=== PATIENT | male | born 1990 | race Two or more races ===

== ENCOUNTER 2025-08-28 12:30 | Day surgery (SDC) | payer MEDICAID, SELFPAY ==
[2025-08-28] VITALS (10 sets, daily range): BP systolic 113–129; BP diastolic 68–81; PULSE 60–74; RESP 12–20; TEMP 36.2–36.7; O2SAT 94–99; BMI 33.0
[2025-08-28] MEDS: RINGERS LACTATED 1000 ML 1,000 ML 100 ML IV (14:26)
[2025-08-28] MEDS: fentaNYL CIT INJ 50 mCg/ML AMP 2ML (ASD USE ONLY) IVP (14:29)
[2025-08-28] MEDS: MIDAZOLAM INJ 1 MG/ML VIAL 2 ML (ASD USE ONLY) 2 MG IVP (14:29)
== END 2025-08-28 15:24 | disposition home or self-care (01) ==
PROVIDERS: PCP Family Medicine; Referring Provider Surgery; Visit Provider Surgery
PROC: 0DBE8ZX Excision of Large Intestine, Via Natural or Artificial Opening Endoscopic, Diagnostic (ICD-10-PCS; CPT 45380; principal; 2025-08-28 14:30)
DX: Z12.11 Encounter for screening for malignant neoplasm of colon (principal); D12.5 Benign neoplasm of sigmoid colon
CPT/HCPCS: 45385; A4649; J2250; J3010; J7120

== ENCOUNTER 2025-08-30 23:35 | Emergency (ER) | payer MEDICAID, SELFPAY ==
[2025-08-30 23:36] VITALS: BMI 32.8
--- NOTE | 2025-08-30 23:44 | PD.EDABDPN ---
ED Abdominal Pain RME/HPI General Chief Complaint: Abdominal Pain Stated complaint: ABD PAIN, HAYDEN, FEVER, CHILLS,SOB Time seen by provider: 08/31/25 00:01 Arrival date/time: 08/30/25 23:35 RME / HPI RME / HPI narrative: See [facility] for Dr. Aviles's HPI documentation. Related Data Previous Rx's ?Medication ?Instructions ?Recorded amoxicillin 875 mg-potassium 1 tab PO BID #20 tabs 08/31/25 clavulanate 125 mg tablet prednisone 20 mg tablet 20 mg PO BID 3 days #6 tabs 08/31/25 Allergies Allergy/AdvReac Type Severity Reaction Status Date / Time No Known Allergies Allergy Verified 08/30/25 23:36 Review of Systems Review of Systems Systems Reviewed: All systems reviewed, normal except as documented Past Medical History Past Medical History NEUROLOGIC: Negative Neurological Disorders or Seizures CARDIAC: Negative Cardiac Disorders or Congestive Heart Failure RESPIRATORY: Negative Chronic Obstructive Pulmonary Disease (COPD) GASTROINTESTINAL: Positive Gastrointestinal Disorders; Negative Hepatitis GENITOURINARY: Negative Genitourinary Disorders or Renal Disease MUSCULOSKELETAL: Negative Musculoskeletal Disorders ENDOCRINE: Negative Endocrine Disorders, Diabetes Mellitus Type 1 or Diabetes Mellitus Type 2 HEMATOLOGIC: Negative Blood Disorders OTHER HISTORY: Negative Autoimmune Disease, Falls, Blood Transfusions, Blood Transfusion Reaction, Anesthesia Reactions, Chicken Pox, Measles, Mumps, Clostridium Difficile or Cancer Social History SMOKING STATUS: Never smoker ED Exam Narrative Physical exam: See [facility] for Dr. Aviles's physical exam documentation. Course Course Course Narrative: CXR is ordered for determining the etiology of fever. Quality Measures none Orders Category Date Time Status Bedside COVID-19 Antigen Test NOW Care 08/30/25 23:52 Completed Bedside Influenza A&B Antigen Test NOW Care 08/30/25 23:[address] Screening NOW Care 08/30/25 23:54 Completed Saline [Insert IV] NOW Care 08/30/25 23:[address] chest abdomen pelvis w Stat Exams 08/30/25 23:54 Taken XR chest 1V portable Stat Exams 08/30/25 23:54 Taken Bilirubin,Direct Stat Lab 08/30/25 00:20 Completed Blood Culture (Lab) Stat Lab 08/30/25 00:20 Received CBC Stat Lab 08/30/25 00:20 Completed CMP [Comprehensive Metabolic Panel] Stat Lab 08/30/25 00:20 Completed CRP [C-Reactive Protein] Stat Lab 08/30/25 00:20 Completed ESR [Sed Rate (ESR)] Stat Lab 08/30/25 00:20 Completed Lactate (Lactic Acid) Stat Lab 08/30/25 00:20 Completed Magnesium Stat Lab 08/30/25 00:20 Completed Procalcitonin Stat Lab 08/30/25 00:20 Completed Strep A Rapid Stat Lab 08/31/25 00:15 Completed Acetaminophen Tab [Tylenol ES Tab] Med 08/30/25 23:53 Discontinued 1,000 mg PO X1 ONE Amoxicillin/Pot Clav 875 [Augmentin 875] Med 08/31/25 03:08 Discontinued 1 tab PO X1 ONE Ketorolac Inj [Toradol Inj] Med 08/30/25 23:53 Discontinued 30 mg IVP X1 ONE MethylPREDNISolone.* [SoluMEDROL Inj] Med 08/30/25 23:53 Discontinued 125 mg IVP X1 ONE Sodium Chloride 0.9% 1000 ml [Ns] 1,000 ml Med 08/30/25 23:53 Discontinued IV 999 mls/hr Sodium Chloride 0.9% 1000 ml [Ns] 1,000 ml Med 08/31/25 02:32 Discontinued IV 999 mls/hr Vital Signs Vital signs: Vital Signs Temperature 101.0 F H 08/30/25 23:46 Pulse Rate 96 08/30/25 23:46 Respiratory Rate 18 08/30/25 23:46 Blood Pressure 152/92 H 08/30/25 23:46 Pulse Oximetry (%) 96 08/30/25 23:46 Oxygen Delivery Method Room Air 08/30/25 23:46 Abdominal Pain MDM MDM Narrative MDM Narrative:: This section includes all my notes and documentations, including HPI, PE, and ED course. Tanner Aviles MD HPI: 34yo male here with lower abdominal pain since colonoscopy several days ago. He also reports subjective fever, chills, aches, and sore throat. No other complaints. ROS: All negative except as documented in HPI. Physical Exam: General: Alert and oriented. No acute distress when remaining still. Eyes: Conjunctivae and lids clear. ENT: No nasal congestion. Pharynx erythematous and edematous. TM normal bilaterally. Neck: Supple. Heart: RRR. Lungs: No respiratory distress. Good air movement. No rhonchi, wheezing, rales. Abdomen: Soft with mild lower abdominal tenderness. Normal bowel sounds. No distension. No rebound or guarding. Back: No CVA tenderness. Skin: Clammy. Neuro: Alert and oriented X 3. I reviewed all diagnostic test results. My interpretation of the chest x-ray is NAD. My review of the CT chest abdomen pelvis report is mild inflammation adjacent to sigmoid colon. Blood tests are unremarkable. COVID/Influenza/Strep negative. At this point, diagnoses include: Acute tonsillitis Normal abdominal pain after colonoscopy Treatment here included: Solumedrol 125 mg IV Toradol 30 mg IV IV fluid Tylenol 1000 mg orally Augmentin 875 mg orally Significant proven noted. Recommend outpatient management. Based on my best medical judgment, made decision no further evaluation or treatment indicated at this time. Patient understands and agrees to the discharge instructions customized and printed, see below. Discharge instructions from Dr. Aviles: --After evaluation, you have tonsillitis. See attached handout. Your abdominal pain is normal after colonoscopy. -- Augmentin to kill the germs causing the tonsillitis. Complete the entire 10-day course. -- Prednisone to decrease the swelling in the throat. -- Tylenol 1000 mg alternating with ibuprofen 800 mg every 4 hours today and tomorrow. Then as needed for fever or pain. -- Increase oral fluid. Our body needs extra when we are sick. Maintain clear urine. If dark or yellow, increase oral fluid. -- See a private doctor next week if not better. Ask for a referral to see ENT specialist. -- Seek immediate medical care with worsening or with any concerns. Tanner Aviles MD Patient data External records reviewed:: [facility] previous records (Per chart review, patient was seen here on 02/25/24 for diarrhea.) Clinical information provided by:: patient Social determinants that could affect healthcare access:: none Patient has the following chronic illnesses:: none How is presenting disease/condition affected by chronic disease/condition?: no chronic disease Evaluation data The following diagnostics were reviewed and interpreted by me:: lab results and radiology exam(s) Lab and/or radiology exams considered but not ordered:: none Interpretation Summary: I reviewed all diagnostic test results. My interpretation of the chest x-ray is NAD. My review of the CT chest abdomen pelvis report is mild inflammation adjacent to sigmoid colon. Blood tests are unremarkable. COVID/Influenza/Strep negative. Medications / Prescriptions Medications or Prescriptions considered but not ordered:: none Medication administrations:: Medication Administration History Discontinued Medications Acetaminophen (Acetaminophen 500 Mg Tablet) 1,000 mg PO X1 ONE Stop: 08/30/25 23:54 Last Admin: 08/31/25 00:26 Dose: 1,000 mg Documented By: BD Amoxicillin/Clavulanate Potassium (Amoxicillin/Pot Clav 875 Tablet) 1 tab PO X1 ONE Stop: 08/31/25 03:09 Last Admin: 08/31/25 03:13 Dose: 1 tab Documented By: BD Sodium Chloride (Ns) 1,000 mls @ 999 mls/hr IV .Q1H1M ONE Stop: 08/31/25 00:53 Last Infusion: 08/31/25 01:22 Dose: Infused Documented By: Admin: 08/31/25 00:27 Dose: 999 mls/hr Documented By: BD Sodium Chloride (Ns) 1,000 mls @ 999 mls/hr IV .Q1H1M ONE Stop: 08/31/25 03:32 Last Infusion: 08/31/25 03:20 Dose: Infused Documented By: Admin: 08/31/25 03:03 Dose: 999 mls/hr Documented By: BD Ketorolac Tromethamine (Ketorolac Inj 30 Mg/Ml Vial) 30 mg IVP X1 ONE Stop: 08/30/25 23:54 Last Admin: 08/31/25 00:25 Dose: 30 mg Documented By: BD Methylprednisolone Sodium Succinate (Methylprednisolone Sod Succ 62.5 Mg/Ml 2ml Vial) 125 mg IVP X1 ONE Stop: 08/30/25 23:54 Last Admin: 08/31/25 00:26 Dose: 125 mg Documented By: BD Treatment here included: Solumedrol 125 mg IV Toradol 30 mg IV IV fluid Tylenol 1000 mg orally Augmentin 875 mg orally Consultations Consultation(s) initiated? (list below): No Diagnosis Differential diagnosis abdominal pain: acute appendicitis, calculus of kidney, constipation, diverticulitis, pancreatitis, small bowel obstruction and other (Normal pain after colonoscopy, strep throat, COVID, influenza, tonsillitis, URI) Most likely diagnosis given after review of the tests above:: Acute tonsillitis Admission Indicated Admission indicated?: not indicated Explain why admission is indicated or not indicated:: With significant improvement and no condition needing emergent intervention, there was no indication for admission. Admission Request Was there a request for admission?: No Disposition Plan Disposition Plan: Discharge Discharge Attestation Discharge Attestation: The patient and all family members were given an opportunity to ask questions and understood the discharge instructions. Discharge instructions specifically effects, indications for sooner follow up or return to the emergency department, and the expected course of current diagnosis. Patient condition: Stable Discharge Plan Plan Patient Disposition: HOME (Self Care) Prescriptions/Referrals Prescriptions/Med Rec: New prednisone 20 mg tablet 20 mg PO BID 3 Days Qty: 6 0RF Taper: Prednisone Taper 20 mg DAILY for 2 Days and 0 Hour 10 mg DAILY for 2 Days and 0 Hour 5 mg DAILY for 7 Days and 0 Hour amoxicillin-pot clavulanate 875-125 mg tablet 1 tab PO BID Qty: 20 0RF Referrals: No Primary/Family,Physician [Primary Care Provider] - In 1 week Problem List Clinical Impression: Acute tonsillitis Patient/Caregiver Discharge Instructions Discharge Activity: activity as tolerated Education Materials: ED Tonsillitis (Child) Additional Instructions: Discharge instructions from Dr. Aviles: --After evaluation, you have tonsillitis. See attached handout. Your abdominal pain is normal after colonoscopy. -- Augmentin to kill the germs causing the tonsillitis.? Complete the entire 10-day course.? -- Prednisone to decrease the swelling in the throat. -- Tylenol 1000 mg alternating with ibuprofen 800 mg every 4 hours today and tomorrow.? Then as needed for fever or pain.? -- Increase oral fluid.? Our body needs extra when we are sick.? Maintain clear urine.? If dark or yellow, increase oral fluid.?? -- See a private doctor next week if not better.? Ask for a referral to see ENT specialist. -- Seek immediate medical care with worsening or with any concerns. Print Language: Polish Stand Alone Forms: Lis Award Info., Patient Portal Info Letter
[2025-08-30 23:46] VITALS: BP 152/92; PULSE 96; RESP 18; TEMP 38.3; O2SAT 96
--- NOTE | 2025-08-30 23:54 | XR_ITS ---
Examination: CT chest with intravenous contrast CT abdomen with intravenous contrast CT pelvis with intravenous contrast 2-D coronal and sagittal reconstructions Time of exam: August 31, 2025, 1409 hrs. Indications: Chest pain shortness of breath abdominal pain after colonoscopy today Fever and chills CTDI: vol (mGy) : 17.43 DLP: (mGycm): 44 Technique: Multiple axial images of the chest, abdomen and pelvis with intravenous contrast, 3.0 mm slice thickness. Images obtained post intravenous injection Isovue 370 60 cc. 2-D sagittal and coronal reconstructions. Low dose protocols were performed. One or more of the following dose reduction techniques were used; automated exposure control, adjustment of the mA and/or KV according to patient size, use of iterative reconstruction technique. Findings: Thoracic aorta pulmonary arteries intact No mediastinal lymphadenopathy No pneumonia pulmonary edema or pleural disease No visualized liver splenic or renal lesion, negative for pneumoperitoneum Contracted gallbladder Aorta normal size Normal appendix There is inflammatory change about the sigmoid colon with chest particular, for instance axial image 253 No abscess No prostatomegaly Urinary bladder intact Osseous structures intact Impression: No pneumonia pulmonary edema or pleural disease Mild inflammation about diverticula in the sigmoid colon, differential would include mild acute diverticulitis, the appearance should be clinically correlated
--- NOTE | 2025-08-30 23:54 | XR_ITS ---
Examination: PA chest single view Technique: Upright PA chest single view Date and time: August 30, 2025, 11:56 PM, comparison 12/09/2022 Indications: Shortness of breath today. Findings: Normal heart size. No pneumonia or pulmonary edema. The osseous structures are intact Impression: No pneumonia or pulmonary edema
--- NOTE | 2025-08-31 00:17 | PC.NURSE ---
PT refused cath
[2025-08-31] MEDS: KETOROLAC INJ 30 MG/ML VIAL IVP (00:25)
[2025-08-31 00:26] VITALS: TEMP 38.3
[2025-08-31] MEDS: ACETAMINOPHEN 500 MG TABLET 1000 MG PO (00:26)
[2025-08-31] MEDS: MethylPREDNISolone SOD SUCC 62.5 MG/ML 2ML VIAL 125 MG IVP (00:26)
[2025-08-31] MEDS: SODIUM CHLORIDE 0.9% 1000 ML 1,000 ML 999 ML IV ×2 (00:27→03:03)
[2025-08-31 00:33] LABS: Strep A Rapid Negative (Negative)
[2025-08-31 00:42] LABS: Lactate (Lactic Acid) 1.6 mMol/L (0.4-2.0)
[2025-08-31 00:48] LABS: Sed Rate (ESR) 7 mm/hr (0-15)
[2025-08-31 00:50] LABS: Basophils # (Auto) 0.0 Thou/mm3 (0.0-0.2); Basophils % (Auto) 1 % (0-2.5); Eosinophils # (Auto) 0.0 Thou/mm3 (0.0-0.5); Eosinophils % (Auto) 0 % (0-10); Hematocrit 49.2 % (41.0-53.0); Hemoglobin 16.9 g/dL (13.5-16.0); Immature Granulocytes Auto 0.04 Thou/mm3 (0.00-0.00); Lymphocytes # (Auto) 1.1 Thou/mm3 (1.0-4.8); Lymphocytes % (Auto) 13 % (10-50); Mean Corpuscular HGB Conc 34.3 g/dl (31.0-37.0); Mean Corpuscular Hemoglobin 29.3 pg (25.0-35.0); Mean Corpuscular Volume 85 fL (80-100); Monocytes # (Auto) 1.0 Thou/mm3 (0.0-0.8); Monocytes % (Auto) 12 % (0-12); Neutrophils # (Auto) 6.6 Thou/mm3 (1.8-7.7); Neutrophils % (Auto) 75 % (37-80); Nucleated Red Blood Cell # 0.00 Thou/mm3 (0.00-0.00); Nucleated Red Blood Cell % 0 /100 WBC (0); Platelet Count 263 Thou/mm3 (140-440); RDW Standard Deviation 42.6 fL (35.1-43.9); Red Blood Count 5.77 Miln/mm3 (4.50-5.90); White Blood Count 8.9 Thou/mm3 (3.8-10.6)
[2025-08-31 01:00] VITALS: BP 139/87; PULSE 86; RESP 16; TEMP 36.8; O2SAT 99
[2025-08-31 01:31] VITALS: TEMP 36.8
[2025-08-31 01:50] LABS: Alanine Aminotransferase 49 U/L (10-49); Albumin, Serum 4.3 gm/dL (3.5-5.0); Albumin/Globulin Ratio 1.8 (1.2-2.2); Alkaline Phosphatase 65 U/L (46-116); Anion Gap 9 (7-16); Aspartate Amino Transferase 31 U/L (0-34); BUN/Creatinine Ratio 8 Ratio (12-20); Bilirubin,Direct < 0.1 mg/dL (0.0-0.3); Bilirubin,Total 0.3 mg/dL (0.3-1.2); Blood Urea Nitrogen 10 mg/dL (9-23); C-Reactive Protein 4.0 mg/dL (0.0-0.9); Calcium 8.9 mg/dL (8.3-10.6); Calcium (Corrected) 8.9 mg/dL (8.5-10.1); Carbon Dioxide 28.4 mMol/L (20.0-31.0); Chloride 103 mMol/L (98-107); Creatinine (Component) 1.2 mg/dL (0.6-1.3); Estimated Creatinine Clearance 96.6 mL/min (>60); Globulin 2.4 gm/dL (2.3-3.5); Glucose 88 mg/dL (74-106); Magnesium 2.0 mg/dL (1.6-2.6); Osmolality,Calculated 277 (275-295); Potassium 3.8 mMol/L (3.4-5.1); Procalcitonin 0.28 ng/ml (0.0-0.49); Sodium 140 mMol/L (136-145); Total Protein 6.7 gm/dL (5.7-8.2); eGFR > 60 See Note
--- NOTE | 2025-08-31 02:57 | PRELIM_ITS ---
CT scan of the chest, abdomen and pelvis with intravenous contrast (axial sections with sagittal and coronal reformats) August 31, 2025 0209 hours Clinical History: Shortness of breath, abdomen pain after colonoscopy Comparison: No relevant prior available at the time of reading. Findings: Cardiac size is normal. No pericardial effusion pleural effusion or pneumothorax. Clear lungs. The liver, gallbladder, spleen, pancreas, adrenal glands and kidneys are unremarkable. The appendix is normal, best seen on image 236. Mild fat stranding adjacent to the sigmoid colon. No free intraperitoneal air or fluid. The urinary bladder is normal. No acute osseous process. Impression: No acute process of the chest. Mild inflammation adjacent to sigmoid colon, may represent diverticulitis or iatrogenic trauma. No perforation or abscess. Report Electronically Signed By: Grayson Rodrigues 08/31/2025 2:56:31 AM [EST]
[2025-08-31 03:00] VITALS: BP 122/86; PULSE 64; RESP 16; TEMP 37; O2SAT 95
[2025-08-31] MEDS: AMOXICILLIN/POT CLAV 875 TABLET 1 TAB PO (03:13)
== END 2025-08-31 03:31 | disposition home or self-care (01) ==
PROVIDERS: Emergency Provider Emergency Medicine
DX: J03.90 Acute tonsillitis, unspecified (principal)
CPT/HCPCS: 36415; 71045; 71260; 74177; 80053; 81001; 82248; 83605; 83735; 84145; 85025; 85652; 86140; 87040; 87400; 87651; 87811; 96361; 96374; 96375; 99284; A4649; J1885; J2919; J7030; Q9967; A9270